=== PATIENT | female | born 1970 | race Caucasian/White ===

== ENCOUNTER 2019-03-29 14:23 | Emergency (ER) | payer OTHER ==
[~2019-03-29] VITALS: Ht 162.6 cm; Wt 81.6 kg
[2019-03-29 14:30] VITALS: BP 131/80
--- NOTE | 2019-03-29 16:09 | NUR ---
PT AMBULATE TO ER BED 04
--- NOTE | 2019-03-29 16:15 | NUR ---
48 Y/O FEMALE PRESENTING WITH C/C OF DIZZINESS, BLURRY VISION AND OCCIPITAL HEAD REGION PAIN 5/10, PRESSURE SENSATION X1 WEEK. PER PT NKA. MEDICAL HX OF THYROID DISEASE, VERTIGO. NO MEDICATION ON REGULAR BASIS. RADHA THIS MORNING TOLERATED WELL, NO N/V/D. PT NOT SURE WHAT COULD OF CAUSED THE BLURRY VISION. SIDE RAIL X1. FAMILY AT BEDSIDE. VISUAL [employer] PERFORMED AND DOCUMENTED. MD NOTIFIED.
[2019-03-29] MEDS ORDERED: ONDANSETRON 4 MG ODT PO ONE (16:35)
[2019-03-29] MEDS ORDERED: HYDROcodone/APAP 5/325 MG 1 TAB TAB PO ONE (16:35)
--- NOTE | 2019-03-29 18:14 | NUR ---
PT TAKEN TO CT VIA WHEELCHAIR
[2019-03-29 18:56] VITALS: BP 127/79
--- NOTE | 2019-03-29 18:56 | NUR ---
DPatient discharged with v/s stable. Written and verbal after care instructions given and explained. Patient alert, oriented and verbalized understanding of instructions. Ambulatory with steady gait. All questions addressed prior to discharge. ID band removed. Patient advised to follow up with PMD. Rx of NORCO given. Patient educated on indication of medication including possible reaction and side effects. Opportunity to ask questions provided and answered.
== END 2019-03-29 18:56 | disposition home or self-care (01) ==
LOC: MED 14:23
DX: H53.8 Other visual disturbances (principal); F41.9 Anxiety disorder, unspecified; R42 Dizziness and giddiness; E07.9 Disorder of thyroid, unspecified; Z98.890 Other specified postprocedural states
CPT/HCPCS: 70450; 81025; 99284; Q0162

== ENCOUNTER 2019-04-06 19:39 | Emergency (ER) | payer OTHER ==
[~2019-04-06] VITALS: Ht 162.6 cm; Wt 81.6 kg
[2019-04-06 20:05] VITALS: BP 129/73
--- NOTE | 2019-04-06 20:07 | NUR ---
TO LOBBY A/W BED AMBULATORY
--- NOTE | 2019-04-06 20:28 | NUR ---
PT TAKEN TO XRAY FROM [facility]
--- NOTE | 2019-04-06 20:35 | NUR ---
PT RETURN TO LOBBY FROM RAD
--- NOTE | 2019-04-06 20:55 | NUR ---
PT TAKEN TO CHAIR A
--- NOTE | 2019-04-06 20:55 | NUR ---
María Elena harris in [facility] - 04/06/19 at 2057 by RITA PT TAKEN TO CHAIR [place]
--- NOTE | 2019-04-06 21:05 | NUR ---
48/F C/O PRODUCTIVE COUGH COUGH SINCE SATURDAY WITH NASAL CONGESTION, RHINORRHEA, POP, SNEEZING, PLEURITIC CHEST DISCOMFORT. DENIES FEVER, BODY ACHES. STATES DIAPHORESIS AND CHILLS ON SATURDAY. COUGH NOTED, LUNGS CTAB.
[2019-04-06] MEDS: DEXAMETHASONE 10 MG/ML VIAL IM ONE (21:51)
--- NOTE | 2019-04-06 21:55 | NUR ---
Patient discharged with v/s stable. Written and verbal after care instructions given and explained. Patient alert, oriented and verbalized understanding of instructions. Ambulatory with steady gait. All questions addressed prior to discharge. ID band removed. Patient advised to follow up with PMD. Rx of PROMETHAZINE, ALBUTEROL, PREDNISONE given. Patient educated on indication of medication including possible reaction and side effects. Opportunity to ask questions provided and answered.
[2019-04-06 21:56] VITALS: BP 115/78
== END 2019-04-06 21:55 | disposition home or self-care (01) ==
LOC: MED 19:39
DX: J40 Bronchitis, not specified as acute or chronic (principal); E07.9 Disorder of thyroid, unspecified
CPT/HCPCS: 71045; 96372; 99283; J1100